=== PATIENT | male | born 1945 | race Caucasian/White ===

== ENCOUNTER 2018-05-12 09:30 | Outpatient (REF) | payer MEDICARE, SELFPAY ==
[2018-05-12 22:05] LABS: HCT 47.8 % (40.0-50.0); HGB 16.2 g/dL (13.5-17.5); Mean Corp. HGB Concentration 33.9 g/dL (32.0-36.0); Mean Corpuscular Volume 94.5 fL (80-95); Mean Platelet Volume 10.5 fL (8.0-11.0); Platelet Count 190 x1000/uL (130-400); RBC 5.06 m/cumm (4.50-6.00); RBC Distribution Width 12.1 % (11.8-14.1); White Blood Cell Count 7.52 k/cumm (4.4-10.8)
[2018-05-12 22:32] LABS: COMMENT (LAB VIEW ONLY) 129.35 mg/dL; Microalb ug/mg Crea 14.1 ug/mg Cr
[2018-05-12 22:33] LABS: Anion Gap 5.4 mmol/L (3-11); BUN 16 mg/dL (7-18); CO2 30.6 mmol/L (21.0-32.0); CREATININE 1.16 mg/dL (0.70-1.30); Calcium 9.1 mg/dL (8.5-10.1); Chloride 103 mmol/L (98-107); Glucose 122 mg/dL (70-100); Potassium 4.7 mmol/L (3.5-5.1); Sodium 139 mmol/L (136-145); TSH 1.75 uIU/mL (0.358-3.74)
[2018-05-12 22:38] LABS: Hemoglobin A1C 5.8 % (4.5-6.2)
[2018-05-12 22:55] LABS: INR 1.9 (1.0-3.5); Prothrombin Time 19.5 sec (9.3-11.0)
== END 2018-05-12 09:50 ==
LOC: NCHCN 09:30
PROVIDERS: PCP Internal Medicine; Visit Provider Internal Medicine
DX: I48.0 Paroxysmal atrial fibrillation (principal); Z79.01 Long term (current) use of anticoagulants; R73.9 Hyperglycemia, unspecified; R53.83 Other fatigue; I10 Essential (primary) hypertension
CPT/HCPCS: 80048; 85027; 82043; 82570; 83036; 84443; 85610

== ENCOUNTER 2018-12-29 05:07 | Outpatient (REF) | payer OTHER, SELFPAY ==
[2018-12-29 22:24] LABS: Uric Acid 6.9 mg/dL (3.5-7.2)
== END 2018-12-29 05:27 ==
LOC: NCHCN 05:07
PROVIDERS: PCP Internal Medicine; Visit Provider Internal Medicine
DX: M25.562 Pain in left knee (principal)
CPT/HCPCS: 84550

== ENCOUNTER → 2019-03-20 13:29 | Outpatient (REF) | payer OTHER, SELFPAY ==
[2019-03-23 09:44] LABS: Cyclic Citrullinated Peptide <2.5 U/mL (<5.0)
[2019-03-23 11:06] LABS: Rheumatoid Factor <8 IU/mL (<12.5)
[2019-03-23 11:20] LABS: Lyme Ab w Rflx to Lyme Confirm Negative
== END ==
LOC: LBN 13:29
PROVIDERS: PCP Internal Medicine; Visit Provider Nurse Practitioner Family
DX: M25.50 Pain in unspecified joint (principal)
CPT/HCPCS: 86200; 86431; 86618

== ENCOUNTER 2019-03-25 09:48 | Outpatient (REF) | payer OTHER, SELFPAY ==
[2019-03-25 21:35] LABS: INR 1.9 (0.9-1.1); Prothrombin Time 18.7 sec (9.3-11.0)
[2019-03-25 21:51] LABS: Calculated LDL 71 mg/dL; Cholesterol 141 mg/dL (50-200); HDL Cholesterol 47 mg/dL (40-60); Triglyceride 119 mg/dL (30-150)
[2019-03-26 09:43] LABS: Anion Gap 9.5 mmol/L (3-11); BUN 20 mg/dL (7-18); CO2 28.5 mmol/L (21.0-32.0); CREATININE 1.15 mg/dL (0.70-1.30); Calcium 9.2 mg/dL (8.5-10.1); Chloride 104 mmol/L (98-107); Glucose 106 mg/dL (70-100); Potassium 4.9 mmol/L (3.5-5.1); Sodium 142 mmol/L (136-145)
== END 2019-03-25 10:08 ==
LOC: NCHCN 09:48
PROVIDERS: PCP Internal Medicine; Visit Provider Internal Medicine
DX: I10 Essential (primary) hypertension (principal); I48.0 Paroxysmal atrial fibrillation; Z79.01 Long term (current) use of anticoagulants
CPT/HCPCS: 80048; 80061; 85610

== ENCOUNTER 2020-02-11 19:10 | Outpatient (REF) | payer OTHER, SELFPAY ==
[2020-02-11 21:43] LABS: HCT 43.8 % (40.0-50.0); HGB 14.5 g/dL (13.5-17.5); MCHC 33.1 % (32.0-36.0); MCV 96.7 fL (80-95); MPV 10.5 fL (8.0-11.0); Platelet Count 197 10^3/uL (130-400); RBC 4.53 10^6/uL (4.36-5.78); RDW-SD 42.7 fL; WBC 7.57 10^3/uL (4.4-10.8)
[2020-02-11 22:00] LABS: Anion Gap 7.5 mmol/L (3-11); BUN 15 mg/dL (7-18); CO2 26.5 mmol/L (21.0-32.0); CREATININE 1.25 mg/dL (0.70-1.30); Calcium 8.8 mg/dL (8.5-10.1); Chloride 105 mmol/L (98-107); Estimated GFR 56.78 (mL/min/1.73m2); Glucose 91 mg/dL (74-106); Potassium 4.6 mmol/L (3.5-5.1); Sodium 139 mmol/L (136-145)
== END 2020-02-11 19:30 ==
LOC: NCHCN 19:10
PROVIDERS: PCP Nurse Practitioner Family; Visit Provider Nurse Practitioner Family
DX: I48.0 Paroxysmal atrial fibrillation (principal); R06.09 Other forms of dyspnea
CPT/HCPCS: 80048; 85027

== ENCOUNTER 2020-03-29 09:13 | Outpatient (REF) | payer OTHER, SELFPAY ==
[2020-03-29 21:07] LABS: Hemoglobin A1C 5.8 % (<5.7)
[2020-03-29 21:21] LABS: ALT 44 U/L (16-63); AST 26 U/L (15-37); Alkaline Phosphatase 59 U/L (46-116); Anion Gap 6.7 mmol/L (3-11); BUN 19 mg/dL (7-18); Bilirubin, Total 0.7 mg/dL (0.2-1.0); CO2 28.3 mmol/L (21.0-32.0); CREATININE 1.37 mg/dL (0.70-1.30); Calculated LDL 67 mg/dL (<100); Chloride 103 mmol/L (98-107); Cholesterol 142 mg/dL (<200); Estimated GFR 51.08 (mL/min/1.73m2); Glucose 109 mg/dL (74-106); HDL Cholesterol 44 mg/dL (40-60); Potassium 4.6 mmol/L (3.5-5.1); Sodium 138 mmol/L (136-145); Total Protein 7.4 g/dL (6.4-8.2); Triglyceride 157 mg/dL (<150)
[2020-03-29 21:26] LABS: Calcium 9.3 mg/dL (8.5-10.1)
== END 2020-03-29 09:33 ==
LOC: NCHCN 09:13
PROVIDERS: PCP Nurse Practitioner Family; Visit Provider Internal Medicine
DX: N48.1 Balanitis (principal); F52.21 Male erectile disorder; Z79.01 Long term (current) use of anticoagulants; R73.03 Prediabetes; I10 Essential (primary) hypertension; E66.9 Obesity, unspecified; R06.09 Other forms of dyspnea; D64.9 Anemia, unspecified
CPT/HCPCS: 80053; 80061; 83036

== ENCOUNTER 2020-10-25 14:33 | Outpatient (REF) | payer OTHER, SELFPAY ==
[2020-10-25 14:39] LABS: INR 1.9 (0.9-1.1); Prothrombin Time 18.6 sec (9.3-11.0)
[2020-10-25 14:48] LABS: Anion Gap 6.7 mmol/L (3-11); BUN 19 mg/dL (7-18); CO2 31.3 mmol/L (21.0-32.0); CREATININE 1.3 mg/dL (0.70-1.30); Calcium 9.2 mg/dL (8.5-10.1); Chloride 104 mmol/L (98-107); Estimated GFR 54.26 (mL/min/1.73m2); Glucose 109 mg/dL (74-106); Potassium 4.6 mmol/L (3.5-5.1); Sodium 142 mmol/L (136-145); Uric Acid 7.8 mg/dL (3.5-7.2)
[2020-10-25 14:53] LABS: Hemoglobin A1C 5.7 % (<5.7)
== END 2020-10-25 14:34 | disposition home or self-care (01) ==
LOC: NCHCN 14:33
PROVIDERS: PCP Nurse Practitioner Family; Visit Provider Internal Medicine
DX: I10 Essential (primary) hypertension (principal); R73.03 Prediabetes; I48.0 Paroxysmal atrial fibrillation; M79.671 Pain in right foot; M79.672 Pain in left foot
CPT/HCPCS: 80048; 83036; 84550; 85610

== ENCOUNTER 2020-12-16 19:46 | Outpatient (REF) | payer OTHER, SELFPAY ==
[2020-12-16 20:34] LABS: Abs Immature Grans 0.05 10^3/uL (0.0-0.06); Absolute Basophil Count 0.04 10^3/uL (0.0-0.2); Absolute Eosinophil Count 0.09 10^3/uL (0.0-0.7); Absolute Monocyte Count 0.83 10^3/uL (0.1-0.8); Absolute Neutrophil Count 6.63 10^3/uL (1.2-6.7); Basophils % 0.4; Eosinophils % 0.9; HCT 46.7 % (40.0-50.0); HGB 15.7 g/dL (13.5-17.5); Immature Grans % 0.5; Lymphocytes % 23.9; MCH 32.4 pg (27.0-33.0); MCHC 33.6 % (32.0-36.0); MCV 96.3 fL (80-95); Monocytes % 8.3; Nucleated RBC 0 %; RBC 4.85 10^6/uL (4.36-5.78); RDW 11.8 % (11.8-14.1); RDW-SD 41.2 fL; WBC 10.04 10^3/uL (4.4-10.8)
[2020-12-17 09:24] LABS: C-Reactive Protein 1.19 mg/dL (0.0-0.3)
== END 2020-12-16 19:47 | disposition home or self-care (01) ==
LOC: NCHCN 19:46
PROVIDERS: PCP Nurse Practitioner Family; Visit Provider Family Medicine
DX: M25.561 Pain in right knee (principal)
CPT/HCPCS: 86141; 85025; 86140

== ENCOUNTER 2021-03-01 14:32 | Outpatient (REF) | payer OTHER, SELFPAY ==
[2021-03-03 12:08] LABS: COVID-19 RT-PCR UVMMC Result Negative (Negative)
== END 2021-03-01 14:33 | disposition home or self-care (01) ==
LOC: NCHCN 14:32
PROVIDERS: PCP Nurse Practitioner Family; Visit Provider Internal Medicine
DX: Z20.822 Contact with and (suspected) exposure to COVID-19 (principal); J06.9 Acute upper respiratory infection, unspecified
CPT/HCPCS: U0003

== ENCOUNTER 2021-12-25 14:44 | Outpatient (REF) | payer MEDICARE, SELFPAY ==
[2021-12-25 15:40] LABS: Anion Gap 7.7 mmol/L (3-11); BUN 17 mg/dL (7-18); CO2 25.3 mmol/L (21.0-32.0); CREATININE 1.3 mg/dL (0.70-1.30); Calcium 9.1 mg/dL (8.5-10.1); Chloride 104 mmol/L (98-107); Estimated GFR 53.96 (mL/min/1.73m2); Glucose 112 mg/dL (74-106); Potassium 4.5 mmol/L (3.5-5.1); Sodium 137 mmol/L (136-145)
[2021-12-25 15:46] LABS: INR 2.5 (0.9-1.1); Prothrombin Time 24.1 sec (9.3-11.0)
[2021-12-25 15:47] LABS: Abs Immature Grans 0.05 10^3/uL (0.0-0.06); Absolute Basophil Count 0.04 10^3/uL (0.0-0.2); Absolute Eosinophil Count 0.14 10^3/uL (0.0-0.7); Absolute Lymphocyte Count 2.77 10^3/uL (1.2-3.4); Absolute Monocyte Count 0.74 10^3/uL (0.1-0.8); Absolute Neutrophil Count 4.93 10^3/uL (1.2-6.7); Basophils % 0.5; Eosinophils % 1.6; HCT 46.3 % (40.0-50.0); HGB 15.4 g/dL (13.5-17.5); Immature Grans % 0.6; Lymphocytes % 31.9; MCHC 33.3 % (32.0-36.0); MCV 96 fL (80-95); MPV 10.4 fL (8.0-11.0); Monocytes % 8.5; Neutrophils % 56.9; Platelet Count 209 10^3/uL (130-400); RBC 4.82 10^6/uL (4.36-5.78); RDW-SD 42.9 fL; WBC 8.67 10^3/uL (4.4-10.8)
== END 2021-12-25 14:45 | disposition home or self-care (01) ==
LOC: NCHCN 14:44
PROVIDERS: PCP Nurse Practitioner Family; Visit Provider Nurse Practitioner Family
DX: I48.0 Paroxysmal atrial fibrillation (principal); K21.9 Gastro-esophageal reflux disease without esophagitis; R27.9 Unspecified lack of coordination; E66.9 Obesity, unspecified
CPT/HCPCS: 80048; 85025; 85610